=== PATIENT | female | born 1975 | race Caucasian/White ===

== ENCOUNTER → 2022-03-23 08:13 | Outpatient (BNVA) | payer OTHER, SELFPAY | PROVIDERS: Visit Provider Nurse Practitioner Family | DX: G47.33 Obstructive sleep apnea (adult) (pediatric) (principal) ==

== ENCOUNTER → 2022-07-23 15:09 | Outpatient (BNVA) | payer OTHER, SELFPAY | PROVIDERS: Visit Provider Nurse Practitioner Family | DX: Z13.89 Encounter for screening for other disorder (principal) ==

== ENCOUNTER 2022-11-25 08:36 | Outpatient (AMB) | payer OTHER, SELFPAY ==
--- NOTE | 2022-11-25 08:37 | A.OFFVIS_ITS ---
Intake Vital Signs 11/25/22 08:39 Height 5 ft 1 in Weight 223 lb BMI 42.1 BP 126/78 Blood Pressure Location Rt brachial Position Sitting Intake Visit Reasons: 4m follow up migraine - Confirmed Intake Note: Patient presents for 4 month follow up migraine. Patient states I feel like the migraines are a little less,when I take my nurtec is very helpful but on the pricey side. Allergies amoxicillin Allergy (Verified 11/25/22 08:40) Hives Penicillins Allergy (Verified 11/25/22 08:40) Hives chocolate flavor Adverse Reaction (Verified 11/25/22 08:40) Headache erythromycin base Adverse Reaction (Verified 11/25/22 08:40) Nausea strawberry Allergy (Uncoded 11/25/22 08:40) hives Medication List - Last Reconciled 11/25/22 by ROBERTA Nayak propranolol 20 mg PO BID PRN 30 days riboflavin (vitamin B2) 400 mg PO DAILY 30 days rimegepant (Nurtec ODT) 75 mg PO Q OTHER DAY PRN 32 days sertraline 25 mg PO DAILY topiramate 25 - 50 mg (1 - 2 x 25 mg) PO BEDTIME 30 days HPI HPI Comments History of Present Illness Details 47-yr-old female presents for f/u visit. Pt denies any significant interval medical changes. Pt reports she is having daily headache behind eye (usually right) w/o photo/phonophobia or N/V She is having 3-4 migraine attacks per month. She is feeling more not right in space dizziness, especially if she is busy or looking screen to screen. This is worse w/ her glasses. She has been prone to falling. Not triggered by dizziness. More if the ground is uneven. Tends to land on her right knee/leg. She can feel feel a vibration in her hands- at times. No visible shaking. Has had recent eye exam- which was normal. She is feeling more cognitive challenges- having difficulty focusing, even getting distracted when reading an email. She feels that she has a big job, but is not doing as well as she can. She works as a lead programmer analyst. She states she was a good student. Denies h/o hyperactive, but she has been always pretty busy and active. She does find himself doodling more. She finds herself drowsy if she sits to read a book. Does feel that she may be jeferson-menopausal- feeling warmer overall. She has h/o SANGITA. Did not tolerate PAP tx. Has had weight gain since last study. Easily falls asleep. Has nocturia and snoring. [facility] Medical History BPPV (benign paroxysmal positional vertigo) Depression GERD (gastroesophageal reflux disease) Premenstrual tension syndrome Surgical History History of esophagogastroduodenoscopy (EGD) Family History Mother Tremors of nervous system Social History Household Members: Spouse and Children Housing: House Alcohol intake: current Alcohol intake frequency: a few times a week Patient Tobacco Use Status: Never used Tobacco Review of Systems Const All systems reviewed & are unremarkable except as noted in HPI and below Physical Exam Vital Signs: Last Vital Signs BP 126/78 11/25/22 08:39 BMI result Body Mass Index 42.1 Const General: cooperative and no acute distress Orientation/consciousness: patient oriented x3 HEENT Head: Yes normocephalic Resp Effort & Inspection: normal respiratory effort and able to speak in complete sentences Neuro General: patient oriented x3, gait normal and CN's II-XI intact bilaterally Cognition (Neuro): normal cognition Motor exam (neuro): 5/5 motor strength present throughout Psych Appearance: grossly normal Mental Status: mental status grossly normal Speech and movement: Normal speech and movement present Affect: normal affect Attitude: cooperative Thought process: Normal thought process present Thought content: Normal thought content present Insight: Good insight present (Psych) Judgement: Good judgement present (Psych) Assessment & Plan Assessment & Plan (1) Vertigo: Code(s): R42 - Dizziness and giddiness (2) SANGITA (obstructive sleep apnea): Code(s): G47.33 - Obstructive sleep apnea (adult) (pediatric) Plan For overall headache management: Continue to track headaches, especially after any treatment regimen changes. ? For acute headache treatment: Continue Nurtec ODT 75mg- 1 tab qd at onset of migraine- as pt has had good effect. Pt again advised to check [facility] websit to see if she is eligible for co-pay assistance Previous trials- Ubrelvy sample- not effective. Contraindications: Triptans d/t tachycardia at rest. ? For menstrual related migraine: Nurtec ODT 75mg qod-qd, 1-3 days prior to onset of menses. May adjunct with NSAID or TYlenol. ? For headache prevention medication: Continue Riboflavin 400mg qam Continue OTC Magnesium 250-500mg qhs Again may trial low dose Topiramate 25-50mg qhs- this may promote weight loss which may reduce SANGITA burden as well. May use Propranolol 20mg bid prn headache or tachycardia. Previous tx trials- Propranolol Er 60mg- induced cough. Migraine tx contraindications: I would avoid TCAs d/t cardiac s/e's. Future considerations: candasarten or verapamil, CGRP MaB ? For SANGITA: Pt advised to undergo HST to assess status of sleep apnea- as pt is having increased cognitive difficulties, weight gain. For dizziness: Start vestibular PT. For cognition: Consider neuro-psych eval- ? adult ADD f/u in 4 months or sooner prn Orders: Orders PT Evaluation and Treatment Today R42 - Dizziness and giddiness RT home sleep study Today G47.33 - Obstructive sleep apnea (adult) (pediatric), R06.83 - Snoring, R35.1 - Nocturia Coding Level of Care Code Est Pt Level 4 (55102) Diagnoses Vertigo R42 SANGITA (obstructive sleep apnea) G47.33
[2022-11-25 08:39] VITALS: BP 126/78; BMI 42.1
== END 2022-11-25 09:42 | disposition home or self-care (01) ==
PROVIDERS: Visit Provider Nurse Practitioner Family
DX: R42 Dizziness and giddiness (principal); G47.33 Obstructive sleep apnea (adult) (pediatric)
CPT/HCPCS: 99214

== ENCOUNTER → 2022-11-25 08:36 | Outpatient (BNVA) | payer OTHER, SELFPAY | PROVIDERS: Visit Provider Nurse Practitioner Family ==

== ENCOUNTER 2023-03-29 07:50 | Outpatient (AMB) | payer OTHER, SELFPAY ==
--- NOTE | 2023-03-29 07:53 | MHC.OFFVIS ---
Intake Vital Signs 03/29/23 07:55 Height 5 ft 1 in Weight 195 lb BMI 36.8 BP 118/76 Blood Pressure Location Rt brachial Position Sitting Pulse 76 Pulse Source Pulse Oximeter Pulse Oximetry (%) 97 Oxygen Delivery Method Room Air Intake Visit Reasons: 4m follow up migraine-Confirmation Intake Note: Patient presents for 4 month follow up. My migraines are better. Allergies amoxicillin Allergy (Verified 03/29/23 07:58) Hives Penicillins Allergy (Verified 03/29/23 07:58) Hives chocolate flavor Adverse Reaction (Verified 03/29/23 07:58) Headache erythromycin base Adverse Reaction (Verified 03/29/23 07:58) Nausea strawberry Allergy (Uncoded 03/29/23 07:58) hives Medication List - Last Reconciled 03/29/23 by ROBERTA Nayak propranolol 20 mg PO BID PRN 30 days riboflavin (vitamin B2) 400 mg PO DAILY 30 days rimegepant (Nurtec ODT) 75 mg PO Q OTHER DAY PRN 32 days sertraline 25 mg PO DAILY topiramate 25 - 50 mg (1 - 2 x 25 mg) PO BEDTIME 30 days HPI HPI Comments History of Present Illness Details 47-yr-old female presents for f/u visit. Pt endorses the following interval medical history changes: Pt has had an intentional 30lb weight loss- trying to eat better and doing a compounded semaglutide. She has also stopped drinking alcohol to help w/ weight loss and reduce headache triggers. She is having less general headaches. Using Tylenol or Ibuprofen 7 days per month. Having migraine attack 1 day per week, at most 2 days when she has a menstrual migraine. She is using less Nurtec ODT- now Nurtec alone w/o adjuncting w/ APAP/NSAID is effective. Tried Topiramate- did not tolerate. Uisng Propranolol 20mg qhs- helps also w/ tachycardia. Her dizziness is better- thinks it may be r/t ehr glasses. Has eye exam this month. She is sleeping a bit more soundly. Scheduled for HST on 04/20/22. [facility] Medical History BPPV (benign paroxysmal positional vertigo) Depression GERD (gastroesophageal reflux disease) Premenstrual tension syndrome Surgical History History of esophagogastroduodenoscopy (EGD) Family History Mother Tremors of nervous system Social History Household Members: Spouse and Children Housing: House Alcohol intake: current Alcohol intake frequency: a few times a week Patient Tobacco Use Status: Never used Tobacco Review of Systems Const All systems reviewed & are unremarkable except as noted in HPI and below Physical Exam Vital Signs: Last Vital Signs Pulse 76 03/29/23 07:55 BP 118/76 03/29/23 07:55 Pulse Ox 97 03/29/23 07:55 Oxygen Delivery Method Room Air 03/29/23 07:55 BMI result Body Mass Index 36.8 Const General: cooperative and no acute distress Orientation/consciousness: patient oriented x3 HEENT Head: Yes normocephalic Resp Effort & Inspection: normal respiratory effort and able to speak in complete sentences Neuro General: patient oriented x3, gait normal and CN's II-XI intact bilaterally Cognition (Neuro): normal cognition Motor exam (neuro): 5/5 motor strength present throughout Psych Appearance: grossly normal Mental Status: mental status grossly normal Speech and movement: Normal speech and movement present Affect: normal affect Attitude: cooperative Thought process: Normal thought process present Thought content: Normal thought content present Insight: Good insight present (Psych) Judgement: Good judgement present (Psych) Assessment & Plan Assessment & Plan (1) Migraine without aura: Code(s): G43.009 - Migraine without aura, not intractable, without status migrainosus (2) Tachycardia: Code(s): R00.0 - Tachycardia, unspecified (3) Menstrually related migraine: Code(s): G43.829 - Menstrual migraine, not intractable, without status migrainosus (4) SANGITA (obstructive sleep apnea): Code(s): G47.33 - Obstructive sleep apnea (adult) (pediatric) Plan For overall headache management: Continue to track headaches, especially after any treatment regimen changes. ? For acute headache treatment: Continue Nurtec ODT 75mg- 1 tab qd at onset of migraine- as pt has had good effect. Previous trials- Ubrelvy sample- not effective. Contraindications: Triptans d/t tachycardia at rest. ? For menstrual related migraine: Nurtec ODT 75mg qod-qd, 1-3 days prior to onset of menses. May adjunct with NSAID or TYlenol. ? For headache prevention medication: Continue Riboflavin 400mg qam Continue OTC Magnesium 250-500mg qhs Stop Topiramate 25-50mg qhs- not tolerated. Continue Propranolol 20mg qhs- also for tachycardia. Previous tx trials- Propranolol Er 60mg- induced cough. Topiramate 25-50mg qhs- not tolerated. Migraine tx contraindications: I would avoid TCAs d/t cardiac s/e's. Future considerations: candasarten or verapamil, CGRP MaB ? For SANGITA: HST as scheduled to assess status of sleep apnea. ? For dizziness: Monitor clinically. Eye exama s scheduled. ? For cognition: Consider neuro-psych eval- ? adult ADD ? f/u in 4 months or sooner prn Medications: New semaglutide (weight loss) 70 units- compound formulation subcutaneously every week Changed From propranolol 20 mg PO BID 30 days PRN 60 tabs 3RF tachycardia or headache To propranolol 20 mg orally qhs PRN; 30 days 30 tabs 6RF tachycardia or headache Refilled rimegepant (Nurtec ODT) 75 mg PO Q OTHER DAY 32 days PRN 16 tabs 6RF migraine headache G43.009 - Migraine without aura, not intractable, without status migrainosus Discontinued topiramate Discontinued Reason: Doctor's Order 25 - 50 mg (1 - 2 x 25 mg) PO BEDTIME 30 days 60 tabs 3RF Coding Level of Care Code Est Pt Level 4 (31722) Diagnoses Migraine without aura G43.009 Tachycardia R00.0 Menstrually related migraine G43.829 SANGITA (obstructive sleep apnea) G47.33
[2023-03-29 07:55] VITALS: BP 118/76; PULSE 76; O2SAT 97; BMI 36.8
== END 2023-03-29 08:43 | disposition home or self-care (01) ==
PROVIDERS: Visit Provider Nurse Practitioner Family
DX: G43.009 Migraine without aura, not intractable, without status migrainosus (principal); R00.0 Tachycardia, unspecified; G43.829 Menstrual migraine, not intractable, without status migrainosus; G47.33 Obstructive sleep apnea (adult) (pediatric)
CPT/HCPCS: 99214

== ENCOUNTER → 2023-03-29 07:50 | Outpatient (BNVA) | payer OTHER, SELFPAY | PROVIDERS: Visit Provider Nurse Practitioner Family | DX: R42 Dizziness and giddiness (principal); G47.33 Obstructive sleep apnea (adult) (pediatric); R35.1 Nocturia; R06.83 Snoring ==

== ENCOUNTER 2023-07-27 08:03 | Outpatient (AMB) | payer OTHER, SELFPAY ==
--- NOTE | 2023-07-27 08:11 | MHC.OFFVIS ---
Vital Signs 07/27/23 08:14 Height 5 ft 1 in Weight 179 lb BMI 33.8 BP 116/78 Blood Pressure Location Rt brachial Position Sitting Pulse 77 Pulse Source Pulse Oximeter Intake Visit Reasons: 4 mo f/u Migraines - Confirmed Intake Note: Patient presents for migraines. Patient headaches were good and now have spiked Allergies amoxicillin Allergy (Verified 07/27/23 08:15) Hives Penicillins Allergy (Verified 07/27/23 08:15) Hives chocolate flavor Adverse Reaction (Verified 07/27/23 08:15) Headache erythromycin base Adverse Reaction (Verified 07/27/23 08:15) Nausea strawberry Allergy (Uncoded 07/27/23 08:15) hives Medication List - Last Reconciled 07/27/23 by ROBERTA Nayak propranolol 20 mg orally qhs PRN; 30 days riboflavin (vitamin B2) 400 mg PO DAILY 30 days rimegepant (Nurtec ODT) 75 mg PO Q OTHER DAY PRN 32 days semaglutide (weight loss) 70 units- compound formulation subcutaneously every week sertraline 25 mg PO DAILY HPI Comments Details: 47-yr-old female presents for f/u visit. Pt denies any significant interval medical changes. She has continued to have intentional wt loss using semaglutide. Pt has had an increase in her migraine frequency, in the past month had 15 migraine days. She has had to miss work recently for the migraine. She does find that when she goes into work, she is more prone to have a migraine, but can have migraine at home as well. The migraine is still triggered by her menses, which is regular. Nurtec helps, but better when taken w/ adjuncting w/ APAP/NSAID. Tends to have to ration the Nurtec as she runs out of it beofre the end of the month. Propranolol low dose helps some- does help w/ tachycardia. She did recently have a crick in her neck, and did a massage which was helpful. Does have a massage gun. Baseline headache characteristics: Severe headache starts in the back of her head, and moves into bilateral eye and retro-orbital region, sometimes in temples. The pain is sharp and throbbing. A/w Photophobia, phonophobia, osmophobia, N/V, dizziness, brain fog, bilateral watery eyes. No red eyes, runny nose, focal weakness. Postdrome: Fatigue for a day. [facility] Medical History BPPV (benign paroxysmal positional vertigo) Depression GERD (gastroesophageal reflux disease) Premenstrual tension syndrome Surgical History History of esophagogastroduodenoscopy (EGD) Family History Mother Tremors of nervous system Social History Household Members: Spouse and Children Housing: House Alcohol intake: current Alcohol intake frequency: a few times a week Patient Tobacco Use Status: Never used Tobacco Physical Exam Vital Signs: Last Vital Signs Pulse 77 07/27/23 08:14 BP 116/78 07/27/23 08:14 BMI result Body Mass Index 33.8 Const General: cooperative and no acute distress Orientation/consciousness: patient oriented x3 Resp Effort & Inspection: normal respiratory effort and able to speak in complete sentences Neuro General: patient oriented x3 Cranial nerves: Yes CN's II-XII intact bilaterally Cognition (Neuro): normal cognition Psych Appearance: grossly normal Mental Status: mental status grossly normal Speech and movement: Normal speech and movement present Affect: normal affect Attitude: cooperative Assessment & Plan Assessment & Plan (1) Migraine without aura: Code(s): G43.009 - Migraine without aura, not intractable, without status migrainosus Category: Medical (2) Menstrually related migraine: Code(s): G43.829 - Menstrual migraine, not intractable, without status migrainosus Category: Medical (3) Tachycardia: Code(s): R00.0 - Tachycardia, unspecified Category: Medical Plan For overall headache management: Continue to track headaches, especially after any treatment regimen changes. ? For acute headache treatment: Continue Nurtec ODT 75mg- 1 tab qd at onset of migraine- as pt has had good effect. Previous trials- Ubrelvy sample- not effective. Contraindications: Triptans d/t tachycardia at rest. ? For menstrual related migraine: Nurtec ODT 75mg qod-qd, 1-3 days prior to onset of menses. May adjunct with NSAID or TYlenol. ? For headache prevention medication: Continue Riboflavin 400mg qam Continue OTC Magnesium 250-500mg qhs Continue Propranolol 20mg qhs- also for tachycardia. Start Emgality 240mg subcu x1, then 120 mg subcu q.month. Previous tx trials- Propranolol Er 60mg- induced cough. Topiramate 25-50mg qhs- not tolerated. Migraine tx contraindications: I would avoid TCAs d/t cardiac s/e's. I would avoid candesartan or calcium channel nabila due to BP normotensive on propranolol. ? For SANGITA: HST when able ? For dizziness: Monitor clinically. For cognition: Consider neuro-psych eval- ? adult ADD ? f/u in 4 months or sooner prn Medications: New galcanezumab-gnlm (Emgality Pen) Loading dose: 120 mg subcu injection x2 in alternate sites (total 240 mg). To be followed by maintenance dose of 120 mg subcu q.month. 240 mg (2 mL) subcut ONCE 2 mL 0RF 30 days Coding Level of Care Code Est Pt Level 4 (02701) Diagnoses Migraine without aura G43.009 Menstrually related migraine G43.829 Tachycardia R00.0
[2023-07-27 08:14] VITALS: BP 116/78; PULSE 77; BMI 33.8
== END 2023-07-27 08:53 | disposition home or self-care (01) ==
PROVIDERS: Visit Provider Nurse Practitioner Family
DX: G43.009 Migraine without aura, not intractable, without status migrainosus (principal); G43.829 Menstrual migraine, not intractable, without status migrainosus; R00.0 Tachycardia, unspecified
CPT/HCPCS: 99214

== ENCOUNTER → 2023-07-27 08:03 | Outpatient (BNVA) | payer OTHER, SELFPAY | PROVIDERS: Visit Provider Nurse Practitioner Family ==